=== PATIENT | female | born 1955 | race Caucasian/White ===

== ENCOUNTER → 2016-10-07 | Outpatient (CLI) | payer OTHER ==
[~2016-10-07] MED LIST: HYDROCORTISONE30 G2 T; TRAMADOL HCL50 MG PO
[2016-10-07 16:23] LABS: BUN 14 mg/dl (7-24); EST GLOM FILT AFRICAN AMERICAN > 60 ml/min
== END | disposition home or self-care (01) ==
LOC: LAB 15:47
PROVIDERS: Anesthesiology Pain Medicine
DX: M51.16 Intervertebral disc disorders with radiculopathy, lumbar region (principal)

== ENCOUNTER → 2016-12-23 | Outpatient (CLI) | payer OTHER | END | disposition home or self-care (01) | LOC: CARD 13:45 | DX: I31.3 Pericardial effusion (noninflammatory) (principal); R94.31 Abnormal electrocardiogram [ECG] [EKG] ==

== ENCOUNTER → 2017-01-28 | Outpatient (CLI) | payer OTHER ==
[2017-01-29 16:10] LABS: AMPHETAMINE, URINE Negative ng/mL (Cutoff=1000); BARBITURATE, URINE Negative ng/mL (Cutoff=200); CANNABINOID, URINE Negative ng/mL (Cutoff=20); CREATININE, UR 91.2 mg/dL (20.0-300.0); PH URINE 5.6 (4.5-8.9)
== END | disposition home or self-care (01) ==
LOC: LAB 13:08
PROVIDERS: Anesthesiology Pain Medicine
DX: Z79.891 Long term (current) use of opiate analgesic (principal); Z79.899 Other long term (current) drug therapy

== ENCOUNTER → 2017-07-30 | Outpatient (CLI) | payer OTHER | END | disposition home or self-care (01) | LOC: RAD 15:13 | DX: R06.02 Shortness of breath (principal); R06.09 Other forms of dyspnea ==

== ENCOUNTER 2017-08-19 13:49 | Emergency (ER) | payer OTHER ==
[~2017-08-19] VITALS: Ht 154.9 cm; Wt 104.3 kg
[2017-08-19] MEDS ORDERED: VITAMIN D5000 UNIT PO (14:17)
[2017-08-19] MEDS ORDERED: PRINIVIL10 MG PO (14:17)
[2017-08-19 14:18] VITALS: BP 147/69
[2017-08-19] MEDS ORDERED: MORPHINE PUMP (14:18)
[2017-08-19] MEDS ORDERED: CLINDAMYCIN HC300 MG PO (16:08)
== END 2017-08-19 16:07 | disposition home or self-care (01) ==
LOC: ED 13:49
DX: S82.52XA Displaced fracture of medial malleolus of left tibia, initial encounter for closed fracture (principal); S80.12XA Contusion of left lower leg, initial encounter; N64.4 Mastodynia; W18.09XA Striking against other object with subsequent fall, initial encounter; Y93.89 Activity, other specified; Y92.89 Other specified places as the place of occurrence of the external cause; Y99.8 Other external cause status; Z88.2 Allergy status to sulfonamides

== ENCOUNTER → 2017-09-23 | Outpatient (CLI) | payer OTHER ==
[~2017-09-23] MED LIST changes: +CLINDAMYCIN HC300 MG PO; +MORPHINE PUMP; +PRINIVIL10 MG PO; +VITAMIN D5000 UNIT PO
== END ==
LOC: ORTHO 04:08
DX: S82.55XD Nondisplaced fracture of medial malleolus of left tibia, subsequent encounter for closed fracture with routine healing (principal); X58.XXXD Exposure to other specified factors, subsequent encounter

== ENCOUNTER → 2018-01-16 | Outpatient (CLI) | payer OTHER ==
[~2018-01-16] MED LIST changes: +KEFLEX500 M1 PO; +LIDEX 0.05% CRE15 GM T
[2018-01-17 19:05] LABS: AMPHETAMINE SCREEN, URINE Negative ng/mL (Cutoff=1000); BARBITURATES SCREEN, URINE Negative ng/mL (Cutoff=200); BENZODIAZEPINES SCREEN URINE Negative ng/mL (Cutoff=200); CANNABINOID SCREEN, URINE Negative ng/mL (Cutoff=20); CREATININE, UR 124.9 mg/dL (20.0-300.0); MEPERIDINE SCREEN, URINE Negative ng/mL (Cutoff=200); METHADONE SCREEN, URINE Negative ng/mL (Cutoff=300); OPIATE SCREEN, URINE Positive ng/mL (Cutoff=300); OXYCODONE SCREEN URINE Negative ng/mL (Cutoff=100); PH URINE 5.4 (4.5-8.9); PROPOXYPHENE SCREEN, URINE Negative ng/mL (Cutoff=300)
== END | disposition home or self-care (01) ==
LOC: LAB 11:18
PROVIDERS: Physical Medicine & Rehabilitation
DX: M51.16 Intervertebral disc disorders with radiculopathy, lumbar region (principal); M54.5 Low back pain; Z79.891 Long term (current) use of opiate analgesic; Z79.899 Other long term (current) drug therapy

== ENCOUNTER 2018-01-21 17:29 | Emergency (ER) | payer OTHER ==
[~2018-01-21] VITALS: Ht 154.9 cm; Wt 108.0 kg
[~2018-01-21 17:29] MED LIST changes: -KEFLEX500 M1 PO; -LIDEX 0.05% CRE15 GM T
[2018-01-21 17:33] VITALS: BP 126/73
[2018-01-21] MEDS ORDERED: LIDEX 0.05% CRE15 GM T (17:44)
[2018-01-21] MEDS ORDERED: KEFLEX500 M1 PO (17:44)
== END 2018-01-21 17:55 | disposition home or self-care (01) ==
LOC: ED 17:29
DX: S50.861A Insect bite (nonvenomous) of right forearm, initial encounter (principal); R03.0 Elevated blood-pressure reading, without diagnosis of hypertension; Z91.041 Radiographic dye allergy status; Z88.2 Allergy status to sulfonamides; Z88.5 Allergy status to narcotic agent; Z79.2 Long term (current) use of antibiotics; Z79.899 Other long term (current) drug therapy; Z90.710 Acquired absence of both cervix and uterus; Z90.49 Acquired absence of other specified parts of digestive tract; W57.XXXA Bitten or stung by nonvenomous insect and other nonvenomous arthropods, initial encounter; Y93.89 Activity, other specified; Y92.89 Other specified places as the place of occurrence of the external cause; Y99.8 Other external cause status

== ENCOUNTER → 2018-07-25 | Outpatient (CLI) | payer OTHER ==
[~2018-07-25] MED LIST changes: +AMOXICILLIN500 M2 PO; +KEFLEX500 M1 PO; +LIDEX 0.05% CRE15 GM T; +Motrin,Rufen800 MG PO
== END | disposition home or self-care (01) ==
LOC: MAMMO 15:58
DX: Z12.31 Encounter for screening mammogram for malignant neoplasm of breast (principal); N64.4 Mastodynia

== ENCOUNTER 2018-09-02 20:17 | Emergency (ER) | payer OTHER ==
[~2018-09-02] VITALS: Ht 154.9 cm; Wt 100.7 kg
[~2018-09-02 20:17] MED LIST changes: -AMOXICILLIN500 M2 PO; -Motrin,Rufen800 MG PO
[2018-09-02 20:19] VITALS: BP 137/104
[2018-09-02] MEDS ORDERED: Motrin,Rufen800 MG PO (21:03)
[2018-09-02] MEDS ORDERED: AMOXICILLIN500 M2 PO (22:07)
== END 2018-09-02 21:29 | disposition home or self-care (01) ==
LOC: ED 20:17
DX: H66.92 Otitis media, unspecified, left ear (principal); J02.9 Acute pharyngitis, unspecified; Z88.2 Allergy status to sulfonamides; Z88.6 Allergy status to analgesic agent; Z79.899 Other long term (current) drug therapy; Z91.041 Radiographic dye allergy status

== ENCOUNTER → 2018-11-04 | Outpatient (CLI) | payer OTHER ==
[~2018-11-04] MED LIST changes: +AMOXICILLIN500 M2 PO; +Motrin,Rufen800 MG PO
[2018-11-09 19:08] LABS: AMPHETAMINE, URINE Negative ng/mL (Cutoff=1000); BARBITURATE Negative ng/mL (Cutoff=200); CANNABINOIDS Negative ng/mL (Cutoff=20); COCAINE (METABOLITE) Negative ng/mL (Cutoff=300); FENTANYL, URINE Negative pg/mL (Cutoff=2000); MEPERIDINE Negative ng/mL (Cutoff=200); METHADONE Negative ng/mL (Cutoff=300); OPIATES Positive ng/mL (Cutoff=300); PHENCYCLIDINE Negative ng/mL (Cutoff=25); PROPOXYPHENE Negative ng/mL (Cutoff=300); TRAMADOL Negative ng/mL (Cutoff=200)
== END | disposition home or self-care (01) ==
LOC: LAB 11:20
PROVIDERS: Anesthesiology
DX: M54.5 Low back pain (principal); M51.16 Intervertebral disc disorders with radiculopathy, lumbar region; Z79.899 Other long term (current) drug therapy; Z79.891 Long term (current) use of opiate analgesic

== ENCOUNTER → 2019-05-02 | Outpatient (CLI) | payer OTHER ==
[2019-05-02 09:55] LABS: BASO # 0.1 10*3/uL (0.0-0.1); BASO % 0.4 % (0.0-1.0); EOS # 0.3 10*3/uL (0.0-0.4); EOS % 2.1 % (1.0-4.0); HEMATOCRIT 43.7 % (37.0-47.0); HEMOGLOBIN 13.1 g/dl (12.0-16.0); MEAN CELL VOLUME 93.6 fl (81.0-99.0); MEAN CORPUSCULAR HGB 28.1 pg (27.0-31.0); MEAN PLATELET VOLUME 11.5 fl (9.6-12.3); MONO # 0.7 10*3/uL (0.1-1.0); MONO % 4.6 % (3.0-9.0); NEUT # 11.7 10*3/uL (2.3-7.9); NEUT % 73.2 % (47.0-73.0); PLATELET COUNT AUTOMATED 444 10*3/uL (130-400); RED BLOOD COUNT 4.67 10*6/uL (4.10-5.10); RED CELL DISTRI WIDTH 13.6 % (0-14.5)
[2019-05-02 10:05] LABS: ACT PARTIAL THROMBO TIME 26.3 SECONDS (20.0-32.1); INTERNATIONAL NORM RATIO 0.9 (2.0-3.5)
[2019-05-02 10:26] LABS: ALKALINE PHOSPHATASE 88 U/L (45-117); BUN 12 mg/dl (7-24); CHLORIDE 102 mmol/L (98-107); CREATININE 0.91 mg/dL (0.55-1.02); SGOT/AST 19 IU/L (3-35); SGPT/ALT 45 U/L (12-78); SODIUM 138 mmol/L (136-145); TOTAL PROTEIN 7.9 gm/dL (6.4-8.2)
[2019-05-02 12:18] LABS: BILIRUBIN NEGATIVE (NEGATIVE); BLOOD NEGATIVE (NEGATIVE); CLARITY SL CLOUDY (CLEAR); COLOR YELLOW (YELLOW); GLUCOSE NEGATIVE (NEGATIVE); KETONE NEGATIVE (NEGATIVE); LEUKO ESTERASE NEGATIVE (NEGATIVE); NITRITE NEGATIVE (NEGATIVE); UROBILINOGEN 0.2 E.U./dl (0.2-1.0)
[2019-05-02 12:19] LABS: BACTERIA 4+; EPITHELIAL CELLS 30-35
== END | disposition home or self-care (01) ==
LOC: LAB 09:07
DX: M54.41 Lumbago with sciatica, right side (principal); G89.29 Other chronic pain

== ENCOUNTER 2019-09-12 21:56 | Inpatient (IN) | payer OTHER ==
[~2019-09-12] VITALS: Ht 154.9 cm; Wt 90.3 kg
[2019-09-12 22:11] VITALS: BP 147/66
[2019-09-12 23:18] LABS: BASO # 0.1 10*3/uL (0.0-0.1); BASO % 0.4 % (0.0-1.0); EOS # 0.1 10*3/uL (0.0-0.4); EOS % 0.6 % (1.0-4.0); HEMATOCRIT 44.9 % (37.0-47.0); LYMPH # 2.3 10*3/uL (1.3-4.4); LYMPH % 14.4 % (27.0-41.0); MEAN CELL VOLUME 86.3 fl (81.0-99.0); MEAN CORPUSCULAR HGB 28.3 pg (27.0-31.0); MEAN CORPUSCULAR HGB CONC 32.7 g/dl (33.0-37.0); MEAN PLATELET VOLUME 12.9 fl (9.6-12.3); MONO # 0.7 10*3/uL (0.1-1.0); MONO % 4.3 % (3.0-9.0); NEUT # 12.7 10*3/uL (2.3-7.9); NEUT % 79.9 % (47.0-73.0); PLATELET COUNT AUTOMATED 342 10*3/uL (130-400); RED CELL DISTRI WIDTH 12.9 % (0-14.5); WHITE BLOOD COUNT 15.9 10*3/uL (4.8-10.8)
[2019-09-12 23:34] LABS: ALBUMIN 3.2 gm/dl (3.1-4.5); CREATININE 1.35 mg/dL (0.55-1.02); TOTAL PROTEIN 8.1 gm/dL (6.4-8.2)
[2019-09-12 23:38] LABS: BILIRUBIN NEGATIVE (NEGATIVE); BLOOD TRACE-INTACT (NEGATIVE); CLARITY CLEAR (CLEAR); COLOR YELLOW (YELLOW); GLUCOSE 3+ (NEGATIVE); KETONE NEGATIVE (NEGATIVE); LEUKO ESTERASE NEGATIVE (NEGATIVE); NITRITE NEGATIVE (NEGATIVE); PH 6.5 (5.0-9.0); SPECIFIC GRAVITY 1.005 (1.005-1.030); UROBILINOGEN 0.2 E.U./dl (0.2-1.0)
[2019-09-12 23:41] LABS: YEAST 1+
[2019-09-12 23:42] LABS: EPITHELIAL CELLS 21-30; RBC 0-2 rbc/hpf (0-2); WBC 0-2 wbc/hpf (0-5)
[2019-09-13] VITALS (7 sets, daily range): BP systolic 108–156; BP diastolic 56–85
[2019-09-13] MEDS ORDERED: HYDROCHLOROTHIA25 M1 PO (00:56)
[2019-09-13] MEDS ORDERED: OMEPRAZOLE40 MG PO (00:57)
[2019-09-13 03:39] LABS: BUN 10 mg/dl (7-24); CHLORIDE 98 mmol/L (98-107); CREATININE 0.99 mg/dL (0.55-1.02); POTASSIUM 3.5 mmol/L (3.5-5.1); SODIUM 133 mmol/L (136-145)
[2019-09-13 06:23] LABS: BUN 10 mg/dl (7-24); CHLORIDE 100 mmol/L (98-107); CREATININE 0.86 mg/dL (0.55-1.02); POTASSIUM 3.8 mmol/L (3.5-5.1); SODIUM 135 mmol/L (136-145)
[2019-09-13 07:40] LABS: CHOLESTEROL 158 mg/dL (<200); HDL CHOLESTEROL 29 mg/dl (40-60); LDL CHOLESTEROL 97 mg/dL (9-159); TRIGLYCERIDES 158 mg/dl (<150); VLDL CHOLESTEROL 32 mg/dL (6-40)
[2019-09-13 15:57] LABS: BUN 12 mg/dl (7-24); CHLORIDE 103 mmol/L (98-107); CREATININE 0.98 mg/dL (0.55-1.02); POTASSIUM 3.4 mmol/L (3.5-5.1); SODIUM 134 mmol/L (136-145)
[2019-09-14] VITALS: BP 114/57
[2019-09-14 06:26] LABS: BUN 12 mg/dl (7-24); CHLORIDE 105 mmol/L (98-107); CREATININE 0.93 mg/dL (0.55-1.02); POTASSIUM 3.3 mmol/L (3.5-5.1); SODIUM 138 mmol/L (136-145)
[2019-09-14 06:41] LABS: BASO # 0.1 10*3/uL (0.0-0.1); BASO % 0.5 % (0.0-1.0); EOS # 0.3 10*3/uL (0.0-0.4); EOS % 2.5 % (1.0-4.0); HEMATOCRIT 38.9 % (37.0-47.0); LYMPH # 2.3 10*3/uL (1.3-4.4); LYMPH % 21.1 % (27.0-41.0); MEAN CORPUSCULAR HGB 28.4 pg (27.0-31.0); MEAN CORPUSCULAR HGB CONC 31.4 g/dl (33.0-37.0); MEAN PLATELET VOLUME 13.4 fl (9.6-12.3); MONO # 0.5 10*3/uL (0.1-1.0); MONO % 4.3 % (3.0-9.0); NEUT # 7.8 10*3/uL (2.3-7.9); NEUT % 71.1 % (47.0-73.0); PLATELET COUNT AUTOMATED 263 10*3/uL (130-400); RED CELL DISTRI WIDTH 13.1 % (0-14.5)
[2019-09-14 06:46] LABS: MEAN CELL VOLUME 90.5 fl (81.0-99.0)
[2019-09-14 08:00] VITALS: BP 120/60
[2019-09-14 12:00] VITALS: BP 132/60
[2019-09-14 16:00] VITALS: BP 139/88
[2019-09-14 20:00] VITALS: BP 107/66
[2019-09-15] VITALS: BP 130/68
[2019-09-15 06:24] LABS: BASO % 0.3 % (0.0-1.0); EOS # 0.3 10*3/uL (0.0-0.4); EOS % 2.7 % (1.0-4.0); HEMATOCRIT 39.2 % (37.0-47.0); LYMPH # 2.2 10*3/uL (1.3-4.4); LYMPH % 20.6 % (27.0-41.0); MEAN CELL VOLUME 91.6 fl (81.0-99.0); MEAN CORPUSCULAR HGB 28.5 pg (27.0-31.0); MEAN CORPUSCULAR HGB CONC 31.1 g/dl (33.0-37.0); MEAN PLATELET VOLUME 12.5 fl (9.6-12.3); MONO # 0.5 10*3/uL (0.1-1.0); MONO % 4.5 % (3.0-9.0); NEUT # 7.7 10*3/uL (2.3-7.9); NEUT % 71.4 % (47.0-73.0); PLATELET COUNT AUTOMATED 270 10*3/uL (130-400); RED BLOOD COUNT 4.28 10*6/uL (4.10-5.10); RED CELL DISTRI WIDTH 13.4 % (0-14.5); WHITE BLOOD COUNT 10.8 10*3/uL (4.8-10.8)
[2019-09-15 06:46] LABS: BUN 11 mg/dl (7-24); CHLORIDE 108 mmol/L (98-107); CREATININE 0.83 mg/dL (0.55-1.02); POTASSIUM 3.8 mmol/L (3.5-5.1); SODIUM 141 mmol/L (136-145)
[2019-09-15 08:00] VITALS: BP 132/60
[2019-09-15 16:00] VITALS: BP 145/85
[2019-09-15 20:00] VITALS: BP 128/69
[2019-09-16] VITALS: BP 126/70
[2019-09-16 06:30] LABS: BASO % 0.3 % (0.0-1.0); EOS # 0.3 10*3/uL (0.0-0.4); EOS % 2.2 % (1.0-4.0); HEMATOCRIT 39.8 % (37.0-47.0); LYMPH # 2.2 10*3/uL (1.3-4.4); LYMPH % 19.6 % (27.0-41.0); MEAN CELL VOLUME 89.6 fl (81.0-99.0); MEAN CORPUSCULAR HGB 28.2 pg (27.0-31.0); MEAN CORPUSCULAR HGB CONC 31.4 g/dl (33.0-37.0); MEAN PLATELET VOLUME 13.3 fl (9.6-12.3); MONO # 0.5 10*3/uL (0.1-1.0); MONO % 4.7 % (3.0-9.0); NEUT # 8.2 10*3/uL (2.3-7.9); NEUT % 72.8 % (47.0-73.0); PLATELET COUNT AUTOMATED 270 10*3/uL (130-400); RED BLOOD COUNT 4.44 10*6/uL (4.10-5.10); RED CELL DISTRI WIDTH 13.3 % (0-14.5); WHITE BLOOD COUNT 11.3 10*3/uL (4.8-10.8)
[2019-09-16 06:57] LABS: BUN 13 mg/dl (7-24); CHLORIDE 104 mmol/L (98-107); CREATININE 0.89 mg/dL (0.55-1.02); POTASSIUM 3.3 mmol/L (3.5-5.1); SODIUM 137 mmol/L (136-145)
[2019-09-16 08:00] VITALS: BP 138/85
[2019-09-16 12:00] VITALS: BP 143/80
[2019-09-16 16:00] VITALS: BP 109/84
[2019-09-16 20:00] VITALS: BP 154/87
[2019-09-16 23:56] VITALS: BP 153/70
[2019-09-17 07:21] LABS: BASO % 0.4 % (0.0-1.0); EOS # 0.2 10*3/uL (0.0-0.4); EOS % 2.2 % (1.0-4.0); HEMATOCRIT 38.5 % (37.0-47.0); LYMPH # 2.1 10*3/uL (1.3-4.4); LYMPH % 19.9 % (27.0-41.0); MEAN CELL VOLUME 91.4 fl (81.0-99.0); MEAN CORPUSCULAR HGB 28.7 pg (27.0-31.0); MEAN CORPUSCULAR HGB CONC 31.4 g/dl (33.0-37.0); MEAN PLATELET VOLUME 12.4 fl (9.6-12.3); MONO # 0.5 10*3/uL (0.1-1.0); MONO % 4.8 % (3.0-9.0); NEUT # 7.5 10*3/uL (2.3-7.9); NEUT % 72.1 % (47.0-73.0); PLATELET COUNT AUTOMATED 264 10*3/uL (130-400); RED BLOOD COUNT 4.21 10*6/uL (4.10-5.10); RED CELL DISTRI WIDTH 13.5 % (0-14.5); WHITE BLOOD COUNT 10.4 10*3/uL (4.8-10.8)
[2019-09-17 07:50] LABS: BUN 11 mg/dl (7-24); CHLORIDE 105 mmol/L (98-107); CREATININE 0.77 mg/dL (0.55-1.02); POTASSIUM 3.7 mmol/L (3.5-5.1); SODIUM 140 mmol/L (136-145)
[2019-09-17 08:00] VITALS: BP 149/71
[2019-09-17 12:00] VITALS: BP 122/79
[2019-09-17] MEDS ORDERED: GLUCOPHAGE1000 MG PO (15:48)
[2019-09-17] MEDS ORDERED: TRADJENTA5 M1 PO (15:48)
[2019-09-17] MEDS ORDERED: LIPITOR20 MG PO (15:48)
[2019-09-17] MEDS ORDERED: ASPIRIN CHEWABL81 MG PO (15:48)
[2019-09-17] MEDS ORDERED: LANTUS SOL100 UNIT/1 SC (15:48)
[2019-09-17] MEDS ORDERED: GLUCTESTSTRIP (15:48)
[2019-09-17 16:00] VITALS: BP 130/50
== END 2019-09-17 18:22 | disposition home health service (06) | DRG 420 ==
LOC: ED 21:56 → ICCU 09-13 00:01 → EDHOLD 09-13 00:01 → 5E 09-13 00:01 → ICCU 09-13 00:32 → 5E 09-13 14:48
PROVIDERS: Emergency Medicine; Hospitalist; Internal Medicine; ADMIT Internal Medicine
DX: E11.00 Type 2 diabetes mellitus with hyperosmolarity without nonketotic hyperglycemic-hyperosmolar coma (NKHHC) (principal); S80.01XA Contusion of right knee, initial encounter; R65.10 Systemic inflammatory response syndrome (SIRS) of non-infectious origin without acute organ dysfunction; E86.0 Dehydration; E87.6 Hypokalemia; M51.36 Other intervertebral disc degeneration, lumbar region; R10.84 Generalized abdominal pain; E86.9 Volume depletion, unspecified; E66.01 Morbid (severe) obesity due to excess calories; I10 Essential (primary) hypertension; K76.0 Fatty (change of) liver, not elsewhere classified; M21.161 Varus deformity, not elsewhere classified, right knee; E78.1 Pure hyperglyceridemia; J44.9 Chronic obstructive pulmonary disease, unspecified; E11.65 Type 2 diabetes mellitus with hyperglycemia; M17.11 Unilateral primary osteoarthritis, right knee; F17.200 Nicotine dependence, unspecified, uncomplicated; W18.30XA Fall on same level, unspecified, initial encounter; Y93.89 Activity, other specified; Y92.89 Other specified places as the place of occurrence of the external cause; Y99.8 Other external cause status; Z91.041 Radiographic dye allergy status; Z88.2 Allergy status to sulfonamides; Z88.5 Allergy status to narcotic agent; Z90.710 Acquired absence of both cervix and uterus; Z83.3 Family history of diabetes mellitus; Z82.49 Family history of ischemic heart disease and other diseases of the circulatory system; Z79.899 Other long term (current) drug therapy; Z90.49 Acquired absence of other specified parts of digestive tract; Z68.37 Body mass index [BMI] 37.0-37.9, adult; N17.9 Acute kidney failure, unspecified

== ENCOUNTER 2019-09-25 18:45 | Inpatient (IN) | payer OTHER ==
[2019-09-25] VITALS (9 sets, daily range): BP systolic 118–152; BP diastolic 58–81
[~2019-09-25] VITALS: Ht 154.9 cm; Wt 97.1 kg
[~2019-09-25 18:45] MED LIST changes: +ASPIRIN CHEWABL81 MG PO; +GLUCOPHAGE1000 MG PO; +GLUCTESTSTRIP; +HYDROCHLOROTHIA25 M1 PO; +LANTUS SOL100 UNIT/1 SC; +LIPITOR20 MG PO; +OMEPRAZOLE40 MG PO; +TRADJENTA5 M1 PO
[2019-09-25 19:26] LABS: BASO # 0.1 10*3/uL (0.0-0.1); BASO % 0.3 % (0.0-1.0); EOS # 0.3 10*3/uL (0.0-0.4); EOS % 1.7 % (1.0-4.0); HEMATOCRIT 39.6 % (37.0-47.0); LYMPH # 2.9 10*3/uL (1.3-4.4); LYMPH % 19.4 % (27.0-41.0); MEAN CELL VOLUME 92.3 fl (81.0-99.0); MEAN CORPUSCULAR HGB 28.4 pg (27.0-31.0); MEAN CORPUSCULAR HGB CONC 30.8 g/dl (33.0-37.0); MEAN PLATELET VOLUME 11.7 fl (9.6-12.3); MONO # 0.8 10*3/uL (0.1-1.0); MONO % 5.5 % (3.0-9.0); NEUT # 10.6 10*3/uL (2.3-7.9); NEUT % 72.6 % (47.0-73.0); PLATELET COUNT AUTOMATED 380 10*3/uL (130-400); RED BLOOD COUNT 4.29 10*6/uL (4.10-5.10); RED CELL DISTRI WIDTH 13.8 % (0-14.5); WHITE BLOOD COUNT 14.7 10*3/uL (4.8-10.8)
[2019-09-25 19:37] LABS: ACT PARTIAL THROMBO TIME 25.8 SECONDS (20.0-32.1)
[2019-09-25 19:44] LABS: ALBUMIN 2.9 gm/dl (3.1-4.5); ALKALINE PHOSPHATASE 178 U/L (45-117); BUN 11 mg/dl (7-24); CHLORIDE 111 mmol/L (98-107); CREATININE 1.11 mg/dL (0.55-1.02); SGOT/AST 139 IU/L (3-35); SGPT/ALT 141 U/L (12-78); SODIUM 141 mmol/L (136-145); TOTAL PROTEIN 7.4 gm/dL (6.4-8.2)
[2019-09-25 19:47] LABS: TROPONIN I < 0.015 ng/ml (<0.045)
[2019-09-25] MEDS ORDERED: METFORMIN HYD1000 MG PO (21:47)
[2019-09-25] MEDS ORDERED: LANTUS SOL100 UNIT/1 SC (21:47)
[2019-09-25] MEDS ORDERED: AMLODIPINE BESYL5 MG PO (21:48)
[2019-09-25] MEDS ORDERED: LISINOPRIL10 M1 PO (21:48)
[2019-09-25] MEDS ORDERED: VITAMIN D3125 MCG PO (21:48)
[2019-09-26] VITALS: BP 141/63
[2019-09-26 06:08] LABS: ALBUMIN 2.6 gm/dl (3.1-4.5); ALKALINE PHOSPHATASE 143 U/L (45-117); BUN 13 mg/dl (7-24); CHLORIDE 109 mmol/L (98-107); CREATININE 0.86 mg/dL (0.55-1.02); POTASSIUM 3.9 mmol/L (3.5-5.1); SGOT/AST 87 IU/L (3-35); SGPT/ALT 116 U/L (12-78); SODIUM 141 mmol/L (136-145); TOTAL PROTEIN 6.8 gm/dL (6.4-8.2)
[2019-09-26 06:14] LABS: BASO # 0.1 10*3/uL (0.0-0.1); BASO % 0.5 % (0.0-1.0); EOS # 0.3 10*3/uL (0.0-0.4); EOS % 2.3 % (1.0-4.0); HEMATOCRIT 36.9 % (37.0-47.0); LYMPH # 2.6 10*3/uL (1.3-4.4); LYMPH % 21.4 % (27.0-41.0); MEAN CELL VOLUME 94.1 fl (81.0-99.0); MEAN CORPUSCULAR HGB 28.8 pg (27.0-31.0); MEAN CORPUSCULAR HGB CONC 30.6 g/dl (33.0-37.0); MEAN PLATELET VOLUME 12.6 fl (9.6-12.3); MONO # 0.6 10*3/uL (0.1-1.0); MONO % 4.9 % (3.0-9.0); NEUT # 8.4 10*3/uL (2.3-7.9); NEUT % 70.4 % (47.0-73.0); PLATELET COUNT AUTOMATED 330 10*3/uL (130-400); RED BLOOD COUNT 3.92 10*6/uL (4.10-5.10); RED CELL DISTRI WIDTH 13.7 % (0-14.5)
[2019-09-26 07:59] VITALS: BP 128/66
[2019-09-26 08:00] VITALS: BP 132/65
[2019-09-26 12:00] VITALS: BP 139/61
[2019-09-26 14:01] LABS: BILIRUBIN NEGATIVE (NEGATIVE); BLOOD NEGATIVE (NEGATIVE); CLARITY CLEAR (CLEAR); COLOR YELLOW (YELLOW); GLUCOSE NEGATIVE (NEGATIVE); KETONE NEGATIVE (NEGATIVE); LEUKO ESTERASE NEGATIVE (NEGATIVE); NITRITE NEGATIVE (NEGATIVE); SPECIFIC GRAVITY 1.015 (1.005-1.030); UROBILINOGEN 0.2 E.U./dl (0.2-1.0)
[2019-09-26 14:09] LABS: BACTERIA 1+; RBC 0-2 rbc/hpf (0-2); WBC 0-2 wbc/hpf (0-5)
[2019-09-26 16:00] VITALS: BP 134/50
[2019-09-26 20:00] VITALS: BP 137/63
[2019-09-27] VITALS: BP 123/56
[2019-09-27 06:09] LABS: HEP B CORE AB, IGM Negative (Negative); HEPATITIS B SURFACE AG Negative (Negative); HEPATITIS C VIRUS ANTIBODY 0.2 s/co (0.0-0.9)
[2019-09-27 07:08] LABS: BUN 12 mg/dl (7-24); CHLORIDE 108 mmol/L (98-107); POTASSIUM 3.7 mmol/L (3.5-5.1); SODIUM 141 mmol/L (136-145)
[2019-09-27 08:00] VITALS: BP 104/62
[2019-09-27 12:00] VITALS: BP 133/59
[2019-09-27 16:00] VITALS: BP 121/43
[2019-09-27 20:00] VITALS: BP 137/63
[2019-09-28] VITALS: BP 133/66
[2019-09-28 08:00] VITALS: BP 143/65
[2019-09-28 12:00] VITALS: BP 133/65
[2019-09-28] MEDS ORDERED: XARE20MG PO (14:35)
[2019-09-28] MEDS ORDERED: VITAMIN E400 UNI3 PO (14:35)
[2019-09-28] MEDS ORDERED: LOPRESSOR25 MG PO (14:59)
== END 2019-09-28 15:23 | disposition home or self-care (01) | DRG 194 ==
LOC: ED 18:45 → 5E 20:57 → EDHOLD 20:57 → 5E 21:18
PROVIDERS: Emergency Medicine; Internal Medicine; ADMIT Internal Medicine
PROC: 4A02XM4 Measurement of Cardiac Total Activity, External Approach (ICD-10-PCS; principal; 2019-09-27)
PROC: 3E073KZ Introduction of Other Diagnostic Substance into Coronary Artery, Percutaneous Approach (ICD-10-PCS; 2019-09-27)
DX: I11.0 Hypertensive heart disease with heart failure (principal); I48.0 Paroxysmal atrial fibrillation; I50.31 Acute diastolic (congestive) heart failure; R65.10 Systemic inflammatory response syndrome (SIRS) of non-infectious origin without acute organ dysfunction; E11.00 Type 2 diabetes mellitus with hyperosmolarity without nonketotic hyperglycemic-hyperosmolar coma (NKHHC); E78.00 Pure hypercholesterolemia, unspecified; K76.0 Fatty (change of) liver, not elsewhere classified; R07.89 Other chest pain; E66.01 Morbid (severe) obesity due to excess calories; J44.9 Chronic obstructive pulmonary disease, unspecified; Z79.899 Other long term (current) drug therapy; Z79.82 Long term (current) use of aspirin; Z79.4 Long term (current) use of insulin; Z88.2 Allergy status to sulfonamides; Z88.5 Allergy status to narcotic agent; Z91.041 Radiographic dye allergy status; Z91.013 Allergy to seafood; Z68.41 Body mass index [BMI] 40.0-44.9, adult

== ENCOUNTER → 2019-12-07 | Outpatient (CLI) | payer OTHER ==
[~2019-12-07] MED LIST changes: +AMLODIPINE BESYL5 MG PO; +LISINOPRIL10 M1 PO; +LOPRESSOR25 MG PO; +METFORMIN HYD1000 MG PO; +VITAMIN D3125 MCG PO; +VITAMIN E400 UNI3 PO; +XARE20MG PO
== END | disposition home or self-care (01) ==
LOC: RAD 10:52
PROVIDERS: ATTEND Internal Medicine Critical Care Medicine
DX: R05 Cough (principal)

== ENCOUNTER → 2020-07-10 | Outpatient (CLI) | payer OTHER ==
[~2020-07-10] MED LIST changes: +BAYER ASPIRIN C81 MG PO; +CARAFATE1 G1 PO; +D3-501250 MCG PO; +DOXYCYCLINE100 M3 PO; +KLOR-CON M2020 ME1 PO; +LASIX40 MG PO; +NORVASC5 MG PO; +PROTONIX40 MG PO; +TOPROL XL25 MG PO; +TRAD5TAB1 PO; +VENT7GM INH
[2020-07-10 12:47] LABS: MEAN CELL VOLUME 89.7 fl (81.0-99.0); MEAN CORPUSCULAR HGB 26.5 pg (27.0-31.0); MEAN CORPUSCULAR HGB CONC 29.5 g/dl (33.0-37.0); MEAN PLATELET VOLUME 11.2 fl (9.6-12.3); PLATELET COUNT AUTOMATED 373 10*3/uL (130-400); RED BLOOD COUNT 4.57 10*6/uL (4.10-5.10); RED CELL DISTRI WIDTH 15.1 % (0-14.5); WHITE BLOOD COUNT 13.3 10*3/uL (4.8-10.8)
[2020-07-10 13:36] LABS: BASOPHILS 3 % (0-1); TOTAL CELLS COUNTED 100 #CELLS
[2020-07-10 13:37] LABS: OVALOCYTES FEW; PLATELET SUFFICIENCY NORMAL (NORMAL)
== END | disposition home or self-care (01) ==
LOC: LAB 12:28
PROVIDERS: ATTEND Physical Therapist
DX: D64.9 Anemia, unspecified (principal)

== ENCOUNTER 2020-08-27 19:10 | Emergency (ER) | payer OTHER ==
[~2020-08-27] VITALS: Ht 154.9 cm; Wt 102.1 kg
[2020-08-27 19:16] VITALS: BP 134/65
== END 2020-08-27 22:00 | disposition home or self-care (01) ==
LOC: ED 19:10
DX: S96.912A Strain of unspecified muscle and tendon at ankle and foot level, left foot, initial encounter (principal); S80.02XA Contusion of left knee, initial encounter; Z91.041 Radiographic dye allergy status; Z88.2 Allergy status to sulfonamides; Z79.899 Other long term (current) drug therapy; Z98.890 Other specified postprocedural states; W18.40XA Slipping, tripping and stumbling without falling, unspecified, initial encounter; Y93.89 Activity, other specified; Y92.89 Other specified places as the place of occurrence of the external cause; Y99.8 Other external cause status

== ENCOUNTER 2020-09-14 16:03 | Emergency (ER) | payer OTHER ==
[~2020-09-14] VITALS: Wt 100.7 kg
[2020-09-14 16:08] VITALS: BP 152/80
[2020-09-14 16:42] LABS: BASO # 0.1 10*3/uL (0.0-0.1); BASO % 0.4 % (0.0-1.0); EOS # 0.3 10*3/uL (0.0-0.4); EOS % 2.1 % (1.0-4.0); HEMATOCRIT 40.3 % (37.0-47.0); LYMPH # 2.1 10*3/uL (1.3-4.4); LYMPH % 14.9 % (27.0-41.0); MEAN CELL VOLUME 89.4 fl (81.0-99.0); MEAN CORPUSCULAR HGB 26.8 pg (27.0-31.0); MONO # 0.6 10*3/uL (0.1-1.0); MONO % 4.5 % (3.0-9.0); NEUT # 10.8 10*3/uL (2.3-7.9); NEUT % 77.7 % (47.0-73.0); PLATELET COUNT AUTOMATED 414 10*3/uL (130-400); RED BLOOD COUNT 4.51 10*6/uL (4.10-5.10); RED CELL DISTRI WIDTH 15.3 % (0-14.5); WHITE BLOOD COUNT 13.9 10*3/uL (4.8-10.8)
[2020-09-14 17:00] LABS: ALBUMIN 3.2 gm/dl (3.1-4.5); ALKALINE PHOSPHATASE 98 U/L (45-117); BUN 10 mg/dl (7-24); CHLORIDE 109 mmol/L (98-107); CREATININE 0.89 mg/dL (0.55-1.02); SGOT/AST 54 IU/L (3-35); SODIUM 137 mmol/L (136-145)
[2020-09-14 17:06] LABS: SGPT/ALT 56 U/L (12-78)
[2020-09-14] MEDS ORDERED: DOXYCYCLINE100 M3 PO (17:23)
== END 2020-09-14 17:28 | disposition home or self-care (01) ==
LOC: ED 16:03
PROVIDERS: Emergency Medicine
DX: S80.02XA Contusion of left knee, initial encounter (principal); F17.200 Nicotine dependence, unspecified, uncomplicated; Z91.041 Radiographic dye allergy status; Z88.2 Allergy status to sulfonamides; Z88.5 Allergy status to narcotic agent; Z79.899 Other long term (current) drug therapy; Z79.2 Long term (current) use of antibiotics; Z79.82 Long term (current) use of aspirin; Z79.4 Long term (current) use of insulin; Z98.890 Other specified postprocedural states; Z90.711 Acquired absence of uterus with remaining cervical stump; X58.XXXA Exposure to other specified factors, initial encounter; Y93.89 Activity, other specified; Y92.89 Other specified places as the place of occurrence of the external cause; Y99.8 Other external cause status

== ENCOUNTER → 2020-12-04 | Outpatient (CLI) | payer OTHER | END | disposition home or self-care (01) | LOC: CARD 12-03 08:30 | PROVIDERS: ATTEND Family Medicine | DX: I48.0 Paroxysmal atrial fibrillation (principal) ==

== ENCOUNTER → 2021-04-20 | Outpatient (CLI) | payer OTHER | END | disposition home or self-care (01) | LOC: RAD 13:50 | PROVIDERS: ATTEND Chiropractor Orthopedic | DX: M47.816 Spondylosis without myelopathy or radiculopathy, lumbar region (principal); M51.26 Other intervertebral disc displacement, lumbar region; Z90.49 Acquired absence of other specified parts of digestive tract ==

== ENCOUNTER → 2022-05-24 | Outpatient (CLI) | payer OTHER ==
[~2022-05-24] MED LIST changes: +CLARITIN10 MG PO; +CYCLOBENZAPRINE10 MG PO; +FEROSUL325 MG PO; +HYDROCODONE-AC1 EAC1 PO; +LIPITOR10 MG PO; +NORVASC2.5 MG PO; +PREDNISONE50 MG PO; +VITAMIN E180 M1 PO
[2022-05-24 16:41] LABS: BASO # 0.1 10*3/uL (0.0-0.1); BASO % 0.5 % (0.0-1.0); EOS # 0.3 10*3/uL (0.0-0.4); EOS % 2.1 % (1.0-4.0); HEMATOCRIT 46.3 % (37.0-47.0); LYMPH # 2.3 10*3/uL (1.3-4.4); LYMPH % 17.6 % (27.0-41.0); MEAN CELL VOLUME 88.5 fl (81.0-99.0); MEAN CORPUSCULAR HGB 26.6 pg (27.0-31.0); MEAN PLATELET VOLUME 10.6 fl (9.6-12.3); MONO # 0.7 10*3/uL (0.1-1.0); MONO % 5.1 % (3.0-9.0); NEUT # 9.5 10*3/uL (2.3-7.9); NEUT % 74.3 % (47.0-73.0); PLATELET COUNT AUTOMATED 412 10*3/uL (130-400); RED BLOOD COUNT 5.23 10*6/uL (4.10-5.10); RED CELL DISTRI WIDTH 14.8 % (0-14.5); WHITE BLOOD COUNT 12.8 10*3/uL (4.8-10.8)
[2022-05-24 16:57] LABS: ALKALINE PHOSPHATASE 101 U/L (46-116); BUN 9 mg/dl (9-23); CHLORIDE 107 mmol/L (98-107); SGPT/ALT 36 U/L (10-49); TOTAL PROTEIN 8.3 gm/dL (6.0-8.0)
== END ==
LOC: LAB 16:09
PROVIDERS: ATTEND Physical Therapist
DX: I10 Essential (primary) hypertension (principal); E11.9 Type 2 diabetes mellitus without complications; R53.83 Other fatigue

== ENCOUNTER → 2022-11-18 | Outpatient (CLI) | payer MEDICAID | END | disposition home or self-care (01) | LOC: CARD 10-11 01:36 | PROVIDERS: ATTEND Internal Medicine Cardiovascular Disease | DX: I11.9 Hypertensive heart disease without heart failure (principal); I48.0 Paroxysmal atrial fibrillation ==

== ENCOUNTER 2024-07-03 12:07 | Emergency (ER) | payer MEDICARE ==
[~2024-07-03] VITALS: Ht 154.9 cm; Wt 94.3 kg
[2024-07-03 12:33] VITALS: BP 161/75
[2024-07-03] MEDS ORDERED: methylPREDNISolone sod succ 125 MG VIAL IV ONE (12:50)
[2024-07-03] MEDS ORDERED: ALBUTEROL 8 GM INHALER INH ONE (12:50)
[2024-07-03] MEDS ORDERED: Albuterol Sulf/Ipratropium 3 ML VIAL NEB SCH (12:55)
[2024-07-03 13:13] LABS: BASO # 0.1 10*3/uL (0.0-0.1); BASO % 0.5 % (0.0-1.0); EOS # 0.4 10*3/uL (0.0-0.4); EOS % 2.7 % (1.0-4.0); HEMATOCRIT 37.5 % (37.0-47.0); MEAN CELL VOLUME 77.2 fl (81.0-99.0); MEAN CORPUSCULAR HGB 21.6 pg (27.0-31.0); MONO # 0.5 10*3/uL (0.1-1.0); MONO % 4.2 % (3.0-9.0); NEUT # 9.9 10*3/uL (2.3-7.9); NEUT % 77.4 % (47.0-73.0); PLATELET COUNT AUTOMATED 409 10*3/uL (130-400); RED BLOOD COUNT 4.86 10*6/uL (4.10-5.10); RED CELL DISTRI WIDTH 18.6 % (0-14.5); WHITE BLOOD COUNT 12.8 10*3/uL (4.8-10.8)
[2024-07-03 13:34] LABS: ALKALINE PHOSPHATASE 104 U/L (46-116); BUN 11 mg/dl (9-23); CHLORIDE 106 mmol/L (98-107); POTASSIUM 3.9 mmol/L (3.4-5.1); SGPT/ALT 20 U/L (5-49); TOTAL PROTEIN 8.1 gm/dL (6.0-8.0)
[2024-07-03] MEDS ORDERED: ZITHROMAX500 MG PO (15:55)
[2024-07-03] MEDS ORDERED: PREDNISONE10 MG PO (15:55)
== END 2024-07-03 16:34 | disposition home or self-care (01) ==
LOC: ED 12:07
PROVIDERS: Internal Medicine
DX: J44.9 Chronic obstructive pulmonary disease, unspecified (principal); D64.9 Anemia, unspecified; E11.9 Type 2 diabetes mellitus without complications; I10 Essential (primary) hypertension; I48.91 Unspecified atrial fibrillation; F17.200 Nicotine dependence, unspecified, uncomplicated; Z91.041 Radiographic dye allergy status; Z88.2 Allergy status to sulfonamides; Z88.5 Allergy status to narcotic agent; Z98.890 Other specified postprocedural states; Z90.710 Acquired absence of both cervix and uterus; Z90.49 Acquired absence of other specified parts of digestive tract; Z98.51 Tubal ligation status